=== PATIENT | male | born 1995 | race Caucasian/White ===

== ENCOUNTER 2018-01-07 02:31 | Emergency (ER) | payer SELFPAY ==
[2018-01-07] MEDS ORDERED: EPINEPHRINE INJ/PF 1 MG/1 ML AMPULE IM ONE ×2 (03:19→04:01)
[2018-01-07] MEDS ORDERED: DEXAMETHASONE 4 MG TABLET PO ONE (03:19)
[2018-01-07] MEDS ORDERED: CETIRIZINE 10 MG TABLET PO ONE (03:19)
--- NOTE | 2018-01-07 03:29 | ER Document Report ---
ED General - General Chief Complaint: Rash Stated Complaint: RASH Time Seen by Provider: 01/07/18 03:09 Notes: Patient is a 22-year-old male without chronic medical problems who presents with several hours of a diffuse, pruritic rash. Rash is located over the bilateral arms, chest, back and slightly over the face. Patient states that this rash started gradually and has gotten progressively worse since that time. States this feels similar to when he is at hives in the past. He has not trying to treat his symptoms. Nothing worsens his symptoms. He denies any difficulty breathing, difficulty swallowing, vomiting, abdominal pain or syncope. He has not contacted his general doctor regarding today's concerns. TRAVEL OUTSIDE OF THE [place] IN LAST 30 DAYS: No - Related Data Allergies/Adverse Reactions: No Known Allergies Allergy (Unverified 01/07/18 02:34) Past Medical History - General Information source: Patient - Social History Smoking Status: Never Smoker Frequency of alcohol use: None Drug Abuse: None Lives with: Family Family History: Reviewed & Not Pertinent Review of Systems - Review of Systems Notes: Constitutional: Negative for fever. HENT: Negative for sore throat. Eyes: Negative for visual changes. Cardiovascular: Negative for chest pain. Respiratory: Negative for shortness of breath. Gastrointestinal: Negative for abdominal pain, vomiting or diarrhea. Genitourinary: Negative for dysuria. Musculoskeletal: Negative for back pain. Skin: Positive for rash. Neurological: Negative for headaches, weakness or numbness. 10 point ROS negative except as marked above and in HPI. Physical Exam - Vital signs Vitals: Temp Pulse Resp BP Pulse Ox 97.8 F 80 18 117/72 98 01/07/18 02:35 01/07/18 02:35 01/07/18 02:35 01/07/18 02:35 01/07/18 02:35 Interpretation: Normal Notes: PHYSICAL EXAMINATION: GENERAL: Well-appearing, well-nourished and in no acute distress. HEAD: Atraumatic, normocephalic. EYES: Pupils equal round and reactive to light, extraocular movements intact, sclera anicteric, conjunctiva are normal. ENT: nares patent, oropharynx clear without exudates. Moist mucous membranes. NECK: Normal range of motion, supple without lymphadenopathy LUNGS: Breath sounds clear to auscultation bilaterally and equal. No wheezes rales or rhonchi. HEART: Regular rate and rhythm without murmurs ABDOMEN: Soft, nontender, normoactive bowel sounds. No guarding, no rebound. No masses appreciated. EXTREMITIES: Normal range of motion, no pitting or edema. No cyanosis. NEUROLOGICAL: No focal neurological deficits. Moves all extremities spontaneously and on command. PSYCH: Normal mood, normal affect. SKIN: Warm, Dry, normal turgor, diffuse urticaria over the bilateral upper extremities, chest, back and abdomen Course - Re-evaluation Re-evalutation: 01/07/18 03:31 Patient presents with symptoms consistent with an allergic reaction without anaphylaxis. Only cutaneous involvement with multiple areas of hives. Vitals otherwise within normal limits at time of arrival. No respiratory, GI, cardiovascular, or oral pharyngeal symptoms. A trial of epinephrine for symptom resolution was offered to the patient. This did resolve the majority of the patient's hives. Will recommend ongoing antihistamine therapy as an outpatient. At this time will discharge with return precautions and follow-up recommendations. Verbal discharge instructions given a the bedside and opportunity for questions given. Medication warnings reviewed. Patient is in agreement with this plan and has verbalized understanding of return precautions and the need for primary care follow-up in the next 24-72 hours. - Vital Signs Vital signs: Temp Pulse Resp BP Pulse Ox 97.8 F 80 18 117/72 98 01/07/18 02:35 01/07/18 02:35 01/07/18 02:35 01/07/18 02:35 01/07/18 02:35 Discharge - Discharge Clinical Impression: Urticaria Allergic reaction Qualifiers: Encounter type: initial encounter Qualified Code(s): T78.40XA - Allergy, unspecified, initial encounter Condition: Good Disposition: HOME, SELF-CARE Additional Instructions: You were seen today for hives. This can be either allergic, autoimmune, or environmental in origin. You can continue to take cetirizine 10mg up to 3 times daily as needed for itching. IF YOU DEVELOP DIFFICULTY BREATHING, SPREADING OF HIVES, VOMITING, LIGHTHEADEDNESS, IMMEDIATELY AND CALL 911. Please follow-up with your primary care physician in the next 1-2 days.
[2018-01-07] MEDS ORDERED: EPINEPHRINE INJ/PF 1 MG/1 ML AMPULE ONE (04:00)
[2018-01-07 05:25] VITALS: BP 109/53
== END 2018-01-07 05:25 | disposition home or self-care (01) ==
LOC: ER 02:31
DX: L50.9 Urticaria, unspecified (principal); T78.40XA Allergy, unspecified, initial encounter
CPT/HCPCS: 99283; 96372; J0171

== ENCOUNTER 2018-09-16 22:52 | Emergency (ER) | payer OTHER ==
[2018-09-16] MEDS ORDERED: MORPHINE SULFATE 10 MG/ML INJ IV PRN (23:58)
[2018-09-16] MEDS ORDERED: NORMAL SALINE 1000 ML 1,000 ML IV ONE (23:59)
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
[2018-09-17 01:36] VITALS: BP 115/74
== END 2018-09-17 01:48 | disposition home or self-care (01) ==
LOC: ER 22:52
DX: R07.81 Pleurodynia (principal); V87.7XXA Person injured in collision between other specified motor vehicles (traffic), initial encounter; F17.290 Nicotine dependence, other tobacco product, uncomplicated
CPT/HCPCS: 99283; 96374; 70450; 71260; 72125; 74177; J2270